=== PATIENT | female | born 1950 | race Caucasian/White ===

== ENCOUNTER 2021-07-19 11:56 | Day surgery (SDC) | payer MEDICARE, OTHER ==
[2021-07-19] MEDS ORDERED: Depo-Medrol 40 MG/ML IM ONE (11:57)
[2021-07-19] MEDS ORDERED: LIDOCAINE HCL 2% 100 MG/5 ML IJ ONE (11:57)
[2021-07-19] MEDS ORDERED: DIPRIVAN 200 MG/20 ML IV ONE (13:43)
[2021-07-19] MEDS ORDERED: TORAdol 30 mg Injection ONE (14:01)
--- NOTE | 2021-07-19 15:20 | XRAY ---
Indication: Bilateral L4-S1 MBB. Intraoperative fluoroscopy was provided for 7 seconds. Single digital spot image submitted for interpretation demonstrates posterior needle tips projecting over the expected left and right L4-S1 nerve roots. Correlate with intraoperative findings/report.
--- NOTE | 2021-07-19 16:25 | XRAY ---
7 seconds of fluoroscopy was used in surgery for a bilateral L4-S1 MBB.
[2021-07-19] MEDS ORDERED: Lactated Ringers 1,000 ML IV ONE (16:30)
== END 2021-07-19 14:15 | disposition home or self-care (01) ==
LOC: SDC-PAIN 11:56
PROVIDERS: ATTEND Psychiatry & Neurology Pain Medicine
DX: M47.816 Spondylosis without myelopathy or radiculopathy, lumbar region (principal); Z79.899 Other long term (current) drug therapy
CPT/HCPCS: 64493; 64494; 72020; 77002; J1030; J1885; J2704

== ENCOUNTER 2021-09-13 12:06 | Day surgery (SDC) | payer MEDICARE, OTHER ==
[2021-09-13] MEDS ORDERED: BUPIVACAINE 0.5% VIAL IJ ONE (12:07)
[2021-09-13] MEDS ORDERED: DIPRIVAN 200 MG/20 ML IV ONE (14:55)
[2021-09-13] MEDS ORDERED: Lactated Ringers 1,000 ML IV ONE (15:35)
--- NOTE | 2021-09-13 16:35 | XRAY ---
Indication: Bilateral L4-S1 MBB. Intraoperative fluoroscopy provided for 11 seconds. Single digital spot image submitted for interpretation demonstrates posterior needle tips projecting over the expected left and right L4-S1 nerve roots. Correlate with intraoperative findings/report.
--- NOTE | 2021-09-13 17:13 | XRAY ---
11 seconds fluoroscopy time in surgery for bilateral L4-S1 MBB.
== END 2021-09-13 15:00 | disposition home or self-care (01) ==
LOC: SDC-PAIN 12:06
PROVIDERS: ATTEND Psychiatry & Neurology Pain Medicine
DX: M47.816 Spondylosis without myelopathy or radiculopathy, lumbar region (principal); Z79.899 Other long term (current) drug therapy
CPT/HCPCS: 64493; 64494; 72020; 77002; J2704

== ENCOUNTER 2022-01-17 08:38 | Day surgery (SDC) | payer MEDICARE, OTHER ==
[2022-01-17] MEDS ORDERED: Xylocaine 1% Vial 30 ML PF IJ ONE (08:39)
[2022-01-17] MEDS ORDERED: Depo-Medrol 40 MG/ML IM ONE (08:39)
[2022-01-17] MEDS ORDERED: BUPIVACAINE 0.5% VIAL IJ ONE (08:39)
[2022-01-17] MEDS ORDERED: Lactated Ringers 1,000 ML IV ONE (09:33)
[2022-01-17] MEDS ORDERED: DIPRIVAN 200 MG/20 ML IV ONE (10:29)
--- NOTE | 2022-01-17 11:35 | XRAY ---
Indication: Left L4-S1 RFA. Intraoperative fluoroscopy provided for 23 seconds. 3 digital spot image submitted for interpretation demonstrates posterior needle tips projecting over the expected left L4-S1 nerve roots. Correlate with intraoperative findings/report.
--- NOTE | 2022-01-17 11:37 | XRAY ---
23 seconds of fluoroscopy was used in surgery for a left L4-S1 RFA.
== END 2022-01-17 11:01 | disposition home or self-care (01) ==
LOC: SDC-PAIN 08:38
PROVIDERS: ATTEND Psychiatry & Neurology Pain Medicine
DX: M47.816 Spondylosis without myelopathy or radiculopathy, lumbar region (principal); Z79.899 Other long term (current) drug therapy
CPT/HCPCS: 64635; 64636; 72100; 77002; 99100; J1030; J2001; J2704

== ENCOUNTER 2022-01-18 08:46 | Day surgery (SDC) | payer MEDICARE, OTHER ==
[2022-01-18] MEDS ORDERED: Depo-Medrol 40 MG/ML IM ONE (08:47)
[2022-01-18] MEDS ORDERED: BUPIVACAINE 0.5% VIAL IJ ONE (08:47)
[2022-01-18] MEDS ORDERED: Xylocaine 1% Vial 30 ML PF IJ ONE (08:47)
[2022-01-18] MEDS ORDERED: Lactated Ringers 1,000 ML IV ONE (10:07)
[2022-01-18] MEDS ORDERED: DIPRIVAN 200 MG/20 ML IV ONE (10:57)
--- NOTE | 2022-01-18 13:39 | XRAY ---
Indication: Right L4-S1 RFA Intraoperative fluoroscopy provided for 16 seconds. 3 digital spot image submitted for interpretation demonstrates posterior needle tips projecting over the expected right L4-S1 nerve roots. Correlate with intraoperative findings/report.
--- NOTE | 2022-01-18 13:46 | XRAY ---
16 seconds fluoroscopy time in surgery for right L4-S1 RFA.
== END 2022-01-18 11:24 | disposition home or self-care (01) ==
LOC: SDC-PAIN 08:46
PROVIDERS: ATTEND Psychiatry & Neurology Pain Medicine
DX: M47.816 Spondylosis without myelopathy or radiculopathy, lumbar region (principal); Z79.899 Other long term (current) drug therapy
CPT/HCPCS: 64635; 64636; 72100; 77002; 99100; J1030; J2001; J2704